=== PATIENT | female | born 1945 | race Caucasian/White ===

== ENCOUNTER 2019-12-25 11:52 | Outpatient (CLI) | payer MEDICARE, OTHER, SELFPAY ==
--- NOTE | 2019-12-25 12:00 | MM_ITS ---
WS: [id number] BILATERAL SCREENING DIGITAL MAMMOGRAM WITH CAD HISTORY: SCREENING COMPARISON: 10/18/2018 and 10/05/2017 and 08/22/2016 Bilateral CC and MLO views submitted. Computer aided detection analyzed. Breast composition: The breasts are heterogeneously dense, which may obscure small masses. No suspici ous masses, microcalcifications or architectural distortion. Small stable calcifications in the LEFT breast. MM/[place] [id number] IMPRESSION: BI-RADS: 2-Benign FOLLOW UP: 1 Year Follow-up
== END 2019-12-25 11:53 | disposition home or self-care (01) ==
LOC: RADSHAW 11:58
PROVIDERS: PCP Electrodiagnostic Medicine; Visit Provider Electrodiagnostic Medicine
DX: Z12.31 Encounter for screening mammogram for malignant neoplasm of breast (principal)
CPT/HCPCS: 77067

== ENCOUNTER 2020-03-16 11:07 | Outpatient (CLI) | payer MEDICARE, OTHER, SELFPAY ==
--- NOTE | 2020-03-16 11:16 | XR_ITS ---
WS: [id number] FOOT LEFT TECHNIQUE: 3 views of the left foot CLINICAL INFORMATION: LEFT FOOT PAIN, GOUT COMPARISON: None. FINDINGS: Osteopenia. Plantar calcaneal spurring. Achilles enthesophyte. Mild degenerative arthritis. No acute fractures. XR/XR foot LT min 3V* [id number] IMPRESSION: No acute left foot findings.
== END 2020-03-16 11:08 | disposition home or self-care (01) ==
LOC: RADWPI 11:11
PROVIDERS: PCP Electrodiagnostic Medicine; Visit Provider Electrodiagnostic Medicine
DX: M79.672 Pain in left foot (principal); M10.9 Gout, unspecified
CPT/HCPCS: 73630

== ENCOUNTER 2021-02-11 08:13 | Outpatient (CLI) | payer MEDICARE, OTHER, SELFPAY ==
--- NOTE | 2021-02-11 08:28 | MM_ITS ---
WS: [id number] Bilateral screening digital mammogram, 02/11/2021 Clinical Data: SCREENING Comparison: 12/25/2019, 10/18/2018, 10/05/2017, 07/05/2017, 08/22/2016, 11/24/2014, 11/08/2013, 11/01/2012, 10/05, 09/10/2010, 09/01/2008, 10/25/2006, 10/13/2005. Findings: The breast parenchymal pattern shows heterogeneous density No spiculated masses or clustered calcific ations are seen. There are no secondary signs of carcinoma. There are mole markers on both breasts. MM/[place] [id number] Impression: 1. Negative bilateral mammogram unchanged. 2. Recommend annual screening mammograms. BIRADS: 1-Negative FOLLOW UP: 1 Year Follow-up The CAD brick paving checker was used.
== END 2021-02-11 08:14 | disposition home or self-care (01) ==
LOC: RADSHAW 08:26
PROVIDERS: PCP Electrodiagnostic Medicine; Visit Provider Electrodiagnostic Medicine
DX: Z12.31 Encounter for screening mammogram for malignant neoplasm of breast (principal)
CPT/HCPCS: 77067

== ENCOUNTER 2021-04-19 08:02 | Outpatient (CLI) | payer MEDICARE, OTHER, SELFPAY ==
--- NOTE | 2021-04-19 08:21 | USCV_ITS ---
Christiane Lloyd Age: 75 Gender: F : 1945 Exam Date: 04/19/2021 08:49 Ordering Phys: González Keane DO Technologist: Myke Jama Exam Location: [facility] [place] Indication: HX OF CVA Risk Factors: None Previous Vascular Surgery: Right Brachial BP: / Left Brachial BP: / Right Left Velocity (cm/s) Spectral Plaque Velocity (cm/s) Spectral Plaque Syst/Diast Broadening Syst/Diast Broadening 77.60/ 19.70 Prox CCA 67.30 / 12.10 85.40/ 13.10 Mid CCA 71.70 / 18.70 73.60/ 15.80 Distal CCA 71.70 / 14.30 55.50/ 14.50 Hetro Prox ICA 113.10/ 19.70 65.80/ 17.90 Mid ICA 126.20/ 25.00 97.40/ 26.80 Distal ICA 131.50/ 26.30 120.90 ECA 153.80 1.14 ICA/CCA 1.83 Antegrade Vertebral Antegrade 58.10/ 10.80 cm/s 68.40/ 17.10 cm/s [place] Subclavian Tri 86.10 134.1 0 FINDINGS Comparison: none available. No significant elevation of systolic or diastolic velocities. Diffuse, mild bilateral scattered calcified plaque and intimal thickening throughout the common carotid arteries and extending through the bifurcation. Antegrade vertebral arteries. CONCLUSIONS Bilateral ICA stenosis less than 50%. Mild diffuse atherosclerosis. Dr. Sharee Méndez DO (Electronically Signed) Final Date: 19 April 2021 11:39 S
== END 2021-04-19 08:03 | disposition home or self-care (01) ==
LOC: RAD 08:15
PROVIDERS: PCP Electrodiagnostic Medicine; Visit Provider Electrodiagnostic Medicine
DX: I65.23 Occlusion and stenosis of bilateral carotid arteries (principal)
CPT/HCPCS: 93880

== ENCOUNTER → 2021-10-19 15:29 | Outpatient (BNVA) | payer MEDICARE, OTHER, SELFPAY | PROVIDERS: PCP Electrodiagnostic Medicine; Visit Provider Internal Medicine Cardiovascular Disease | DX: I10 Essential (primary) hypertension (principal); E78.5 Hyperlipidemia, unspecified; R42 Dizziness and giddiness; Z98.890 Other specified postprocedural states; I49.8 Other specified cardiac arrhythmias; I45.2 Bifascicular block | CPT/HCPCS: 93005; 99214 ==

== ENCOUNTER 2021-11-18 14:04 | Outpatient (CLI) | payer MEDICARE, OTHER, SELFPAY ==
--- NOTE | 2021-11-18 14:14 | MR_ITS ---
WS: [id number] MRI BRAIN WITH AND WITHOUT CONTRAST HISTORY: MEMORY LOSS COMPARISON: None available. TECHNIQUE: Multiplanar imaging performed through the brain with MultiHance 17 ml's IV. No acute infarcts are seen. Castro-white matter differentiation is well preserved. Moderate atrophy with T2 hyperintensities throughout the white matter from small vessel ischemic dise ase. No prior area of abnormal enhancement. No hemosiderin depositions. No susceptibility artifacts or prior lacunar infarcts. Ventricles and extra-axial spaces are prominent on the basis of atrophy. Clivus and pituitary gland are normal. Focal 5.6 mm enhancing nodule along the base of the marianela just to the RIGHT of midline. This is not ev ident on the precontrast exam. There is very mild enhancement on the postcontrast examinations. No ad jacent hemosiderin. I suspect this is probably a venous angioma. Single enhancing nodule in the RIGHT inferior marianela. Otherwise no enhancing masses are identified. Dural venous sinuses are normal. Paranasal sinuses: Well aerated with no significant disease. Mastoid air cells: Normal. Calvarium and scalp: Normal. MR/MR head wo/w con [id number] IMPRESSION: 1. No acute infarct, hemorrhage or edema. 2. Blush-like area of enhancement in the RIGHT marianela measures 5.6 mm. Favor thi s is probably a small vascular malformation such as venous angioma. Metastatic lesion cannot be excluded. Recommend short-term follow-up. Recommend follow-up brain MRI with and without contrast in 6-8 weeks. 3. Moderate atrophy with small vessel ischemic disease. No large cerebral infa rcts.
[2021-11-18] MEDS: gadobenate dimeglumine 20 mL vial IV (15:24)
== END 2021-11-18 14:05 | disposition home or self-care (01) ==
PROVIDERS: PCP Electrodiagnostic Medicine; Visit Provider Electrodiagnostic Medicine
DX: R41.3 Other amnesia (principal); I67.82 Cerebral ischemia; G31.9 Degenerative disease of nervous system, unspecified
CPT/HCPCS: 70553

== ENCOUNTER → 2021-12-14 10:44 | Outpatient (BNVA) | payer MEDICARE, OTHER, SELFPAY | PROVIDERS: PCP Electrodiagnostic Medicine; Visit Provider Nurse Practitioner Family | DX: I10 Essential (primary) hypertension (principal) | CPT/HCPCS: 99213 ==

== ENCOUNTER 2022-01-28 12:27 | Outpatient (CLI) | payer MEDICARE, OTHER, SELFPAY ==
--- NOTE | 2022-01-28 12:45 | USCV_ITS ---
Gabino Christiane Age: 76 Gender: F : 1945 Exam Date: 01/28/2022 12:52 Ordering Phys: Yashira Cotto MD ([email or web address]) Technologist: Exam Location: [facility] [place] Indication: hx of lt renal stent Aortic Velocity @ SMA (cm/s) 98.3 RIGHT KIDNEY LEFT KIDNEY Velocity (cm/s) Velocity (cm/s) Sys/Gardner Sys/Gardner Resistive Index Resistive Index 155.6 / 38.5 0.75 Proximal Renal Artery 119.2 / 31.2 0.74 165.3 / 41.7 0.75 Mid Renal Artery 149.3 / 39.7 0.73 194.1 / 40.1 0.79 Distal Renal Artery 116.0 / 22.7 0.80 184.5 / 32.1 0.83 Hilar 96.8 / 23.6 0.76 97.0 / 18.8 0.81 Upper Pole 49.7 / 14.0 0.72 88.6 / 20.9 0.76 Mid Pole 51.9 / 11.6 0.78 63.6 / 9.4 0.85 Lower Pole 55.3 / 14.1 0.75 2.00 Renal Aortic Ratio 1.52 Accleration Index (cm/sec2) 3112.0 Hilar 1355.0 0 0 2055.0 Upper Pole 1982.0 0 0 16734. Mid Pole 1173.0 00 0 1455.0 Lower Pole 914.00 0 105.0 Kidney Length (mm) 101.5 CONCLUSIONS Lt renal stent is patent and Left renal artery is patent Increased systolic flow velocities and post-stenotic turbulence noted in the mid and distal right renal artery, approaching 50- 60% renal artery stenosis, at the lower end of the range Slightly increased RI right kidney suggesting medical renal disease Riki Thrasher MD (Electronically Signed) Final Date: 31 January 2022 09:01 S
== END 2022-01-28 12:28 | disposition home or self-care (01) ==
LOC: RAD 12:28
PROVIDERS: PCP Electrodiagnostic Medicine; Visit Provider Internal Medicine Cardiovascular Disease
DX: Z98.890 Other specified postprocedural states (principal); I10 Essential (primary) hypertension
CPT/HCPCS: 93975

== ENCOUNTER → 2022-02-03 14:14 | Outpatient (BNVA) | payer MEDICARE, OTHER, SELFPAY | PROVIDERS: PCP Electrodiagnostic Medicine; Visit Provider Internal Medicine Cardiovascular Disease | DX: I10 Essential (primary) hypertension (principal); Z98.890 Other specified postprocedural states; R42 Dizziness and giddiness; E78.5 Hyperlipidemia, unspecified | CPT/HCPCS: 99214 ==

== ENCOUNTER → 2022-08-18 11:32 | Outpatient (BNVA) | payer MEDICARE, OTHER, SELFPAY | PROVIDERS: PCP Electrodiagnostic Medicine; Visit Provider Specialist | DX: E78.5 Hyperlipidemia, unspecified (principal); Z98.890 Other specified postprocedural states | CPT/HCPCS: 99214 ==

== ENCOUNTER 2022-09-27 16:41 | Emergency (ER) | payer MEDICARE, OTHER, SELFPAY ==
[2022-09-27] VITALS (25 sets, daily range): BP systolic 106–199; BP diastolic 55–87; PULSE 51–70; RESP 14–18; TEMP 36.7; O2SAT 98–100; BMI 27.4
--- NOTE | 2022-09-27 16:49 | XRR_ITS ---
PROCEDURE INFORMATION: Exam: XR Chest Exam date and time: 09/27/2022 5:14 PM Age: 77 years old Clinical indication: Pain; Chest pressure; Additional info: Chest pain TECHNIQUE: Imaging protocol: Radiologic exam of the chest. Views: 1 view. COMPARISON: CR XR KUB [id number] 09/08/2021 8:35 AM FINDINGS: Lungs: Unremarkable. No consolidation. Pleural spaces: Unremarkable. No pleural effusion. No pneumothorax. Heart/Mediastinum: Unremarkable. No cardiomegaly. Bones/joints: Unremarkable. XR/XR chest 1V portable [id number] IMPRESSION: No acute findings.
--- NOTE | 2022-09-27 17:00 | ECG_ITS ---
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 Measurements Intervals [place] Rate: 72 P: 48 GA: 173 QRS: 37 QRSD: 106 T: 23 QT: 387 QTc: 426 Interpretive Statements SINUS RHYTHM INDETERMINATE AXIS INCOMPLETE RIGHT BUNDLE BRANCH BLOCK [90+ ms QRS DURATION, TERMINAL R IN V1/V2, 40+ ms S IN I/aVL/V4/V5/V6] No previous ECG available for comparison Electronically Signed On 09-27-2022 20:27:12 CDT by Yashira Cotto M.D. [id number]
[2022-09-27 17:39] LABS: Basophils % 0.7 %; Eosinophils # 0.2 10^3/uL (0.0-0.8); Eosinophils % 3.6 %; Hematocrit 42.1 % (37.0-47.0); Hemoglobin 13.6 g/dL (11.5-15.3); Lymphocytes # 2.1 10^3/uL (0.8-4.8); Lymphocytes % 35.6 %; Mean Corpuscular HGB Conc 32.3 g/dL (30.0-36.0); Mean Corpuscular Hemoglobin 28.9 pg (28.0-34.0); Mean Corpuscular Volume 89.4 fl (81-99); Mean Platelet Volume 9.4 fL (7.4-10.4); Monocytes # 0.5 10^3/uL (0.2-0.9); Monocytes % 9.3 %; Neutrophils # 2.92 10^3/uL (1.8-7.7); Neutrophils % 50.6 %; Nucleated Red Blood Cells % 0 %; Platelet Count 278 10^3/cmm (130-400); Red Blood Count 4.71 10^6/uL (4.1-5.3); Red Cell Distribution Width 13.5 % (12.1-15.1); White Blood Count 5.8 10^3/uL (4.0-10.0)
[2022-09-27 18:07] LABS: Alanine Aminotransferase 26 U/L (0-33); Albumin Level 4.2 g/dL (3.5-5.2); Alkaline Phosphatase 78 U/L (35-105); Aspartate Amino Transferase 26 U/L (0-32); Blood Urea Nitrogen 15 mg/dL (8-23); Calcium 9.7 mg/dL (8.5-10.5); Carbon Dioxide 25 mmol/L (22-29); Chloride 102 mmol/L (98-107); Glucose 102 mg/dL (65-115); Osmolality Calculated 287 mOsm/kg (285-295); Sodium 138 mmol/L (136-145); Total Bilirubin 0.3 mg/dL (0.15-1.2); Total Protein 7.2 g/dL (6.6-8.7)
[2022-09-27 18:24] LABS: Troponin(5th) Baseline 6 ng/L (0-10)
--- NOTE | 2022-09-27 18:49 | ECG_ITS ---
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 Measurements Intervals [place] Rate: 62 P: 34 CT: 195 QRS: 37 QRSD: 109 T: 28 QT: 417 QTc: 426 Interpretive Statements SINUS RHYTHM WITH SINUS ARRHYTHMIA INCOMPLETE RIGHT BUNDLE BRANCH BLOCK [90+ ms QRS DURATION, TERMINAL R IN V1/V2, 40+ ms S IN I/aVL/V4/V5/V6] Compared to ECG 09/27/2022 17:00:20 Indeterminate axis no longer present Electronically Signed On 09-27-2022 20:31:31 CDT by Yashira Cotto M.D. [id number]
--- NOTE | 2022-09-27 19:30 | ED_ITS ---
HPI - Chest Pain General: Chief Complaint: Chest Pain Stated Complaint: Chest Pain/SOB Time Seen by Provider: 09/27/22 19:06 History of Present Illness: 77-year-old female presents emergency department chief complaint of having intermittent episodes of midsternal chest pain with no radiation last for couple seconds. Spontaneous rest unrelated to activity or exertion or breathing or movement. Patient reports she has been seen by motion picture camera lens technician before which she has had a stress echocardiogram before patient also reports having intermittent tremors that have been ongoing for 3 to 4 years in which she has had prior imaging is come back unremarkable the patient presents with her family present for further assessment and management which she been having these intermittent episodes patient reports no recent medication changes due to her high blood pressure which they have been following quite closely. Patient does not endorse having any palpitations with her chest pressure. She reports no other associated symptoms. Associated symptoms: Deny abdominal pain, dyspnea, fever(s), nausea, palpitations or vomiting Review of Systems General: Reports: 10 or more systems reviewed and unremarkable except in HPI and below Const: Denies: fever(s), chills, fatigue or malaise Eyes: Denies: change in vision or blurry vision Card: Reports: chest pain; Denies: palpitations Resp: Denies: dyspnea or productive cough GI: Denies: abdominal pain, nausea or vomiting : Denies: flank pain Musc: Denies: extremity pain or extremity swelling Skin/Breast: Denies: rash or pruritus Neuro: Denies: headache(s) Psych: Denies: anxiety or depression Gerry/Lymph: Denies: easy bleeding All/Imm: Denies: urticaria, throat swelling or facial swelling PFS ED PFSH: Medical History Anxiety Cystocele Dizziness History of stent insertion of renal artery Hyperlipidemia Malignant hypertension Renal artery stenosis Syncope Venous reflux Surgical History History of hysterectomy Hx of cholecystectomy Family History Grandfather CAD (coronary artery disease) Father CHF (congestive heart failure) CAD (coronary artery disease) Dementia Son Cancer Family/Other Cancer Diabetes Mother CAD (coronary artery disease) Dementia Other Hypertension Denies family history of Clotting disorder Chronic kidney disease (CKD) Suicide Anesthesia complication Bleeding disorder Lung disease Stroke Social History Smoking and tobacco status: never smoked Alcohol intake: never Substance/Drug Use: never Physical Exam Const: COMMON NORMALS: no acute distress, patient oriented x3 and healthy appearing HENMT: COMMON NORMALS: normocephalic and atraumatic HEAD & SCALP: norm ocephalic and atraumatic Eye: COMMON NORMALS: Equal, round and reactive pupils present and EOMs intact bilaterally PUPIL: Yes Equal, round and reactive pupils present Neck/C-Spine: COMMON NORMALS: full ROM, supple and no JVD Lymph: LYMPHATIC: no lymphadenopathy noted Chest: COMMONS NORMALS: normal inspection of the chest and normal palpation of entire chest wall Resp: COMMON NORMALS: normal respiratory effort, No retractions and clear to auscultation bilaterally EFFORT & INSPECTION: Yes able to speak in complete sentences and Yes symmetric chest movement AUSCULTATION: clear to auscultation bilaterally Cardio: COMMON NORMALS: no JVD, regular rate and regular rhythm RATE: regular rate RHYTHM: regular rhythm GI: COMMON NORMALS: Normal to inspection, nondistended, normoactive bowel sounds present, Soft to palpation and non-tender INSPECTION: Yes normal to inspection PALPATION: Yes Soft to palpation : COMMON NORMALS: Yes no CVA tenderness BLADDER/KIDNEY EXAM: Yes no CVA tenderness Back/Pelvis: COMMON NORMALS: no CVA tenderness Extremity: COMMON NORMALS: normal to inspection and full ROM Neuro: COMMON NORMALS: patient oriented x3, CN's II-XII intact bilaterally, moves all extremities and no focal motor deficits Psych: COMMON NORMALS: mental status grossly normal, Normal thought process present, cooperative and normal affect THOUGHT PROCESS: Normal thought process present Skin: COMMON NORMALS: no rashes or lesions noted GENERAL SKIN EXAM: no rashes or lesions noted Course Vital Signs: Vital signs: Vital Signs Temperature 98.1 F 09/27/22 17:02 Pulse Rate 51 L 09/27/22 21:15 Respiratory Rate 18 09/27/22 19:41 Blood Pressure 129/63 09/27/22 21:15 Pulse Oximetry 100 09/27/22 21:15 Oxygen Delivery Me thod Room Air 09/27/22 21:15 MDM - Chest Pain Medical Decision Making Due to the patient's symptoms and condition basic lab work imaging will be obtained and cardiac work-up will be obtained we will continue to follow cardiac enzymes 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 Patient advised to further follow-up with her motion picture camera lens technician next couple days for further assessment managemen for evaluation of possibly a stress echocardiogram if indicated which patient was advised to return the interim if any of his symptoms persist or worsen patient was advised to take a full dose aspirin daily until otherwise noted. Patient and family understand discharge instructions prior to discharge home .All questions were fully answered prior to subsequent discharge home. Lab Data 09/27/22 17:26 09/27/22 17:26 Radiology Impressions Chest X-Ray 09/27/22 16:49 IMPRESSION: No acute findings. Head CT 09/27/22 19:34 IMPRESSION: No acute intracranial abnormality. Laboratory Results WBC 5.8 10^3/uL (4.0-10.0) 09/27/22 17: RBC 4.71 10^6/uL (4.1-5.3) 09/27/22 17:26 Hgb 13.6 g/dL (11.5-15.3) 09/27/22 17:26 Hct 42.1 % (37.0-47.0) 09/27/22 17: MCV 89.4 fl (81-99) 09/27/22 17:26 MCH 28.9 pg (28.0-34.0) 09/27/22 17: MCHC 32.3 g/dL (30.0-36.0) 09/27/22 17: RDW 13.5 % (12.1-15.1) 09/27/22 17:26 Plt Count 278 10^3/cmm (130-400) 09/27/22 17: MPV 9.4 fL (7.4-10.4) 09/27/22 17:26 Neut % (Auto) 50.6 % 09/27/22 17:26 Lymph % (Auto) 35.6 % 09/27/22 17:26 [place] % (Auto) 9.3 % 09/27/22 17: Eos % (Auto) 3.6 % 09/27/22 17:26 Baso % (Auto) 0.7 % 09/27/22 17:26 Neut # (Auto) 2.92 10^3/uL (1.8-7.7) 09/27/22 17:26 Lymph # (Auto) 2.1 10^3/uL (0.8-4.8) 09/27/22 17:26 [place] # (Auto) 0.5 10^3/uL (0.2-0.9) 09/27/22 17:26 Eos # (Auto) 0.2 10^3/uL (0.0-0.8) 09/27/22 17:26 Baso # (Auto) 0.0 10^3/uL (0.0-0.1) 09/27/22 17: Nucleated RBC % (auto) 0 % 09/27/22 17: Nucleated RBCs # 0.0 /100WBC 09/27/22 17:26 Sodium 138 mmol/L (136-145) 09/27/22 17:26 Potassium 4.0 mmol/L (3.5-5.1) 09/27/22 17:26 Chloride 102 mmol/L (98-107) 09/27/22 17:26 Carbon Dioxide 25 mmol/L (22-29) 09/27/22 17:26 Anion Gap 15.0 (5-19) 09/27/22 17:26 BUN 15 mg/dL (8-23) 09/27/22 17:26 Creatinine 0.7 mg/dL (0.5-0.9) 09/27/22 17:26 GFR Calculation Not Reportable 09/27/22 17:26 Glucose 102 mg/dL (65-115) 09/27/22 17:26 Calculated Osmolality 287 mOsm/kg (285-295) 09/27/22 17:26 Calcium 9.7 mg/dL (8.5-10.5) 09/27/22 17:26 Total Bilirubin 0.3 mg/dL (0.15-1.2) 09/27/22 17:26 AST 26 U/L (0-32) 09/27/22 17:26 ALT 26 U/L (0-33) 09/27/22 17:26 Alkaline Phosphatase 78 U/L (35-105) 09/27/22 17:26 Troponin T Baseline 6 ng/L (0-10) 09/27/22 17:26 Troponin T 120 Minute 6.89 ng/L (0-10) 09/27/22 19:29 Delta Troponin T 0.89 ABS# (0-10) 09/27/22 19:29 NT-Pro-B Natriuret Pep 59 pg/mL (0-450) 09/27/22 19:29 Total Protein 7.2 g/dL (6.6-8.7) 09/27/22 17:26 Albumin 4.2 g/dL (3.5-5.2) 09/27/22 17:26 Globulin 3.0 g/dL (1.3-4.6) 09/27/22 17:26 Lipase 31 U/L (13-60) 09/27/22 19:29 Urine Color Light yellow (Yellow) 09/27/22 20:44 Urine Appearance Clear (CLEAR) 09/27/22 20:44 Urine pH 8 (5-7) H 09/27/22 20:44 Ur Specific [place] 1.010 (1.005-1.030) 09/27/22 20:44 Urine Protein Neg (Negative) 09/27/22 20:44 Urine Glucose (UA) Norm (Normal) 09/27/22 20:44 Urine Ketones Negative (Negative) 09/27/22 20:44 Urine Blood Neg (Negative) 09/27/22 20:44 Urine Nitrate Negative (Negative) 09/27/22 20:44 Urine Bilirubin Neg (Negative) 09/27/22 20:44 Prot Sulfosalicylic Acd Negative (Negative) 09/27/22 20:44 Urine Urobilinogen Neg mg/dL (Negative) 09/27/22 20:44 Ur Leukocyte Esterase Trace (Negative) H 09/27/22 20:44 Urine RBC None /hpf (0-2) 09/27/22 20:44 Urine WBC 0-4 /hpf (0-5) H 09/27/22 20:44 Ur Squamous Epith Cells 0-4 /hpf (0-5) H 09/27/22 20:44 Amorphous Sediment Not Reportable 09/27/22 20:44 Urine Bacteria None /hpf (NONE) 09/27/22 20:44 Discharge Plan Discharge Patient Disposition: Home Clinical Impression: Intermittent chest pain Condition: Stable Prescriptions: No Action clopidogrel 75 mg tablet 75 mg PO DAILY aspirin [Adult Low Dose Aspirin] 81 mg tablet,delayed release (DR/EC) 81 mg PO DAILY lovastatin 40 mg tablet 40 mg PO DAILY calcium carbonate [Calcium 500] 500 mg calcium (1,250 mg) tablet 500 mg PO TID magnesium oxide 500 mg tablet 500 mg PO DAILY omega-3 fatty acids [Fish Oil Concentrate] 1,000 mg capsule 1,000 mg PO DAILY carvedilol 6.25 mg tablet 3.125 mg PO BID cholecalciferol (vitamin D3) 25 mcg (1,000 unit) capsule 25 mcg PO DAILY sennosides-docusate sodium [Senexon-S] 8.6-50 mg tablet 1 tab-cap PO DAILY magnesium hydroxide [Milk of Magnesia] 400 mg/5 mL suspension 15 ml PO DAILY PRN amlodipine 5 mg tablet 10 mg PO DAILY Qty: 180 3RF Discharge Orders: Discharge ED (Routine); Ordered 09/27/22 Ordered By: Khai Otero Referrals: Yashira Cotto MD [Physician] - 1-3 days (Or your motion picture camera lens technician for further assessment management for our evaluation for stress echocardiogram) González Keane DO [Primary Care Provider] - 1-3 days Patient Instructions: Chest Pain (ED) Activity Restrictions/Additional Instructions: Your lab work and imaging in the emergency department is come back unremarkable. It is advised we will need to further follow-up with your motion picture camera lens technician in the upcoming days for further evaluation of underlying cardiac condition such as a stress echocardiogram. Please continue to take your medications as previously prescribed at this time T please take a full dose aspirin daily please return in the interim if any of your symptoms persist or worse. Coding Level of Care Code ED Testing Lead for Maricarmen Hutchinson
--- NOTE | 2022-09-27 19:34 | CTR_ITS ---
PROCEDURE INFORMATION: Exam: CT Head Without Contrast Exam date and time: 09/27/2022 8:04 PM Age: 77 years old Clinical indication: Other: Muscle tremors; Additional info: Persistent intermittent muscle tremors TECHNIQUE: Imaging protocol: Computed tomography of the head without contrast. Radiation optimization: All CT scans at this facility use at least one of these dose optimization techniques: automated exposure control; mA and/or kV adjustment per patient size (includes targeted exams where dose is matched to clinical indication); or iterative reconstruction. REPORTING DATA: Count of CT and Cardiac NM exams in prior 12 months: This patient has received 0 known CTs and 0 known cardiac nuclear medicine studies in the 12 months prior to the current study. COMPARISON: MR head wo/w con [id number] 11/18/2021 2:51 PM RADIATION DOSE METRICS: Total DLP (mGy-cm): 1049.7 FINDINGS: Brain: No hemorrhage. No edema. Moderate diffuse cerebral atrophy and mild sequela of chronic small vessel ischemic disease. No mass effect. Cerebral ventricles: No ventriculomegaly. Paranasal sinuses: Visualized sinuses are unremarkable. No fluid levels. Mastoid air cells: Visualized mastoid air cells are well aerated. Bones/joints: Unremarkable. No acute fracture. Soft tissues: Unremarkable. CT/CT head wo con* [id number] IMPRESSION: No acute intracranial abnormality.
[2022-09-27] MEDS: sodium chloride 0.9% 500 ML 999 ML IV (19:36)
[2022-09-27] MEDS: ondansetron 2 mg/ML SDV 2 mL 4 MG IVP (19:37)
[2022-09-27] MEDS: aspirin 81 mg Chew Tablet 324 MG PO (19:37)
[2022-09-27] MEDS: morphine 4 mg/mL SDV 1 mL IVP (19:41)
[2022-09-27 20:23] LABS: Troponin 5 2HR 6.89 ng/L (0-10)
[2022-09-27 20:28] LABS: Troponin 5 2HR Delta 0.89 ABS# (0-10)
[2022-09-27 20:30] LABS: Lipase 31 U/L (13-60); NT Pro B Type Natriuretic Pept 59 pg/mL (0-450)
[2022-09-27] MEDS: nitroglycerin 0.4 mg sublingual Tablet SUBLINGUAL ×2 (20:31→20:49)
--- NOTE | 2022-09-27 20:46 | PC.NURSE ---
MD notified of pt chest pain 05/06 after first nitro, MD said to administer second dose. Pt BP 134/63 at this time.
[2022-09-27 21:05] LABS: Bilirubin Urine Neg (Negative); Blood Urine Neg (Negative); Glucose Urine UA Norm (Normal); Ketones Urine Negative (Negative); Nitrate Urine Negative (Negative); Protein Urine Neg (Negative); Sulfosalicylic Acid Urine Negative (Negative); Urine Appearance Clear (CLEAR); Urine Color Light yellow (Yellow); Urobilinogen Urine Neg (Negative); pH Urine 8 (5-7)
[2022-09-27 21:06] LABS: Add Urine Culture? No; Add Urine Microscopic? YES; Leukocyte Esterase Urine Trace (Negative); Squamous Epithelial Cell Urine 0-4 /hpf (0-5); WBC Urine 0-4 /hpf (0-5)
== END 2022-09-27 23:05 | disposition home or self-care (01) ==
PROVIDERS: Physician Assistant; Emergency Provider Emergency Medicine; PCP Electrodiagnostic Medicine
DX: R07.89 Other chest pain (principal); Z79.82 Long term (current) use of aspirin; Z79.02 Long term (current) use of antithrombotics/antiplatelets; E78.5 Hyperlipidemia, unspecified; I10 Essential (primary) hypertension
CPT/HCPCS: 36415; 70450; 71045; 80053; 81001; 83690; 83880; 84484; 85025; 93005; 96361; 96374; 96375; 99285; J2270; J2405; J7040

== ENCOUNTER → 2022-09-30 10:40 | Outpatient (BNVA) | payer MEDICARE, OTHER, SELFPAY | PROVIDERS: PCP Electrodiagnostic Medicine; Visit Provider Nurse Practitioner Family | DX: R07.89 Other chest pain (principal); R42 Dizziness and giddiness; I10 Essential (primary) hypertension | CPT/HCPCS: 99214 ==

== ENCOUNTER 2022-10-04 09:47 | Outpatient (CLI) | payer MEDICARE, OTHER, SELFPAY ==
--- NOTE | 2022-10-04 10:00 | USCV_ITS ---
Christiane Lloyd Age: 77 Gender: F : 1945 Exam Date: 10/04/2022 10:09 Ordering Phys: Sabina Contreras Technologist: Ant Waller [place]am [place] [facility] [place] Ind[place]: worsening angina BP: 144 / 84 HR: 56 Rhythm: Sinus Technical Quality: Suboptimal MEASUREMENTS (Male / Female) Normal Values 2D ECHO LVOT Diameter 2.0 cm LV Ejection Fraction MOD 2C 76.7 % LV Ejection Fraction 2C AL 77.0 % LA Diameter 3.2 cm LA Width 4.0 cm LA Height 4.0 cm RA Width 3.9 cm RA Height 4.6 cm Aorta at Sinotubular Diameter 2.5 cm IVC Diameter 1.7 cm M-MODE Aortic Annulus Diameter 2.6 cm LA Ao Ratio MM 1.3 MV E Point Septal Separation 0.4 cm DOPPLER AV Peak Velocity 138.7 cm/s LVOT Peak Velocity 109.0 cm/s AV Area Cont Eq vti 2.3 cm squared AV Area Cont Eq pk 2.5 cm squared MV Peak Velocity 142.0 cm/s MV Area PHT 4.6 cm squared Mitral E to A Ratio 1.3 MV E' Velocity 50.5 cm/s Mitral E to MV E' Ratio 7.6 Mitral E to LV E' Lateral Ratio 10.7 Mitral E to LV E' Septal Ratio 5.9 TR Peak Velocity 294.8 cm/s TR Peak Gradient 34.8 mmHg TR Mean Velocity 206.8 cm/s TR Mean Gradient 19.4 mmHg TR Velocity Time Integral 87.1 cm Right Atrial Pressure 3.0 mmHg Pulmonary Artery Systolic Pressu 37.8 mmHg PV Peak Velocity 99.0 cm/s RV Acceleration Time 0.1 s RV Ejection Time 0.3 s RV AcT/ET 0.5 FINDINGS Left Ventricle Normal left ventricular size, systolic function and wall thickness, with no regional wall motion abnormalities. Grade I/IV diastolic dysfunction (abnormal relaxation filling pattern), normal to mildly elevated filling pressures. Left ventricular ejection fraction is estimated at 60 %. Right Ventricle Normal right ventricular size and systolic function. Mild pulmonary hypertension, RVSP 37.8 mmHg. Right Atrium The right atrium is normal in size. Left Atrium The left atrium is normal in size. Mitral Valve Structurally normal mitral valve. Mild mitral valve regurgitation. Aortic Valve Structurally normal trileaflet aortic valve. Trace aortic valve regurgitation. Tricuspid Valve Structurally normal tricuspid valve. Mild tricuspid valve regurgitation. Pulmonic Valve Pulmonic valve not well visualized. Pericardium Normal pericardium without effusion. Aorta Normal ascending aorta dimension. IVC The inferior vena cava appears normal. CONCLUSIONS Normal left ventricular size, systolic function and wall thickness, with no regional wall motion abnormalities. Grade I/IV diastolic dysfunction (abnormal relaxation filling pattern), normal to mildly elevated filling pressures. Left ventricular ejection fraction is estimated at 60 %. Normal right ventricular size and systolic function. Mild pulmonary hypertension, RVSP 37.8 mmHg. Structurally normal mitral valve. Mild mitral valve regurgitation. Structurally normal trileaflet aortic valve. Trace aortic valve regurgitation. No significant change since the prior echocardiogram study of 03/05/2018 Dr. Parmjit Gonsalves MD (Electronically Signed) Final Date: 04 October 2022 16:53 S
== END 2022-10-04 09:48 | disposition home or self-care (01) ==
PROVIDERS: PCP Electrodiagnostic Medicine; Visit Provider Nurse Practitioner Family
DX: I10 Essential (primary) hypertension (principal); R07.9 Chest pain, unspecified; R42 Dizziness and giddiness; I08.0 Rheumatic disorders of both mitral and aortic valves
CPT/HCPCS: 93306

== ENCOUNTER 2022-10-20 07:17 | Outpatient (CLI) | payer MEDICARE, OTHER, SELFPAY ==
[2022-10-20 07:56] VITALS: BMI 27.2
--- NOTE | 2022-10-20 08:23 | NMCV_ITS ---
NM nina perf SPECT r/s* [id number] Christiane Lloyd Age: 77 Gender: F : 1945 Exam Date: 10/20/2022 08:31 Ordering Phys: Sabina Contreras Technologist: KATY Arana Exam Location: [facility] Indications: CHEST PAIN, HYPERTENSION STRESS TEST Please see separate stress test report in [facility] for full findings IMAGE PROTOCOL Rest/Stress 1 Lexiscan Day Radiopharmaceutical Dose (mCi) Administration Site Administered by Rest: Tc-99m 10.4 IV KATY Moya Sestamibi Stress:Tc-99m 32.4 IV KATY Moya Sestamibi Rest: 20-Oct-2022 60 Discovery 630 Stress: 20-Oct-2022 30 Discovery 630 0.4mg Lexiscan. Images obtained in supine and prone position. SPECT RESULTS Technical Quality: Excellent Raw Data Analysis: Normal Image Corrections: No attenuation or motion correction applied Summed Stress Score: 0 Summed Rest Score: 0 Summed Difference Score: 0 PERFUSION FINDINGS Fairly uniform myocardial tracer uptake with no significant perfusion abnormalities FUNCTIONAL RESULTS (calculated via Gated SPECT) Stress Image LV EF (%): 84 Stress EDV (mL):73 TID: 1.11 Stress ESV (mL):12 FUNCTIONAL FINDINGS: Segmental wall motion analysis revealing no gross wall motion abnormalities IMPRESSIONS 1. Unremarkable Myocardial perfusion imaging 2. Normal LV ejection fraction of 84% 3. LV wall motion analysis revealing no gross wall motion abnormalities. 4. Normal LV volume Low probability for coronary ischemia, based on the above findings Dr Yashira Cotto MD FAC (Electronically Signed) Final Date: 20 October 2022 12:36 S
--- NOTE | 2022-10-20 08:23 | ECG_ITS ---
[facility] Test Date: 2022-10-20 Pat Name: Christiane Lloyd Department: Room: Gender: Female [employer] Inserter: Kristi Rainey : 1945 Requested By: Sabina Contreras Order Number: [id number] MD: Yashira Cotto M.D. Interpretive Statements NAME OF STUDY: LEXISCAN SESTAMIBI STRESS TEST INDICATION: Chest Pain, PROCEDURE: At the baseline, the EKG revealed sinus bradycardia with a rate of [address] Ts.. The baseline heart was 55 bpm with a blood pressue of 137/68 mm of Hg Lexiscan was infused over a period of 20 seconds. A total of 0.4 milligrams of Lexiscan was infused. The stress phase was continued for a total of 5 minutes. Heart rate at the end of the stress phase was 71 bpm with a blood pressure 96/53 mm of Hg. The EKG at the peak infusion revealed no significant changes. Sestamibi was injected 20 seconds after the Lexiscan infusion. Heart rate at the end of the recovery phase was 75 bpm with a blood pressure of 95/53 mm of Hg. CONCLUSION: 1. No significant EKG changes with the LexiScan infusion 2. No LexiScan induced chest pain or cardiac arrhythmia 3. Normal blood pressure and heart rate response 4. Sestamibi/sestamibi perfusion scan pending; see separate report. Electronically Signed On 10-26-2022 14:46:40 CDT by Yashira Cotto M.D. [email or web address]
[2022-10-20] MEDS: regadenoson 0.4 Mg/5 ml Syringe IVP (09:33)
[2022-10-20 09:40] VITALS: BP 95/53; PULSE 75
== END 2022-10-20 07:18 | disposition home or self-care (01) ==
LOC: CDL 07:21
PROVIDERS: PCP Electrodiagnostic Medicine; Visit Provider Nurse Practitioner Family
DX: I20.0 Unstable angina (principal); I10 Essential (primary) hypertension
CPT/HCPCS: 36415; 78452; 93017; 96374; A9500; J2785

== ENCOUNTER → 2023-04-24 10:21 | Outpatient (BNVA) | payer MEDICARE, OTHER, SELFPAY | PROVIDERS: PCP Electrodiagnostic Medicine; Visit Provider Nurse Practitioner Family | DX: I10 Essential (primary) hypertension (principal) | CPT/HCPCS: 99213 ==

== ENCOUNTER → 2023-10-09 09:42 | Outpatient (BNVA) | payer MEDICARE, OTHER, SELFPAY | PROVIDERS: PCP Electrodiagnostic Medicine; Visit Provider Internal Medicine Cardiovascular Disease | DX: R55 Syncope and collapse (principal); Z98.890 Other specified postprocedural states; I10 Essential (primary) hypertension | CPT/HCPCS: 99202 ==

== ENCOUNTER → 2024-04-08 08:49 | Outpatient (BNVA) | payer MEDICARE, OTHER, SELFPAY | PROVIDERS: PCP Electrodiagnostic Medicine; Visit Provider Nurse Practitioner Family | DX: I10 Essential (primary) hypertension (principal); E78.5 Hyperlipidemia, unspecified; Z98.890 Other specified postprocedural states | CPT/HCPCS: 99214 ==

== ENCOUNTER → 2024-10-21 10:54 | Outpatient (BNVA) | payer MEDICARE, OTHER, SELFPAY | PROVIDERS: PCP Electrodiagnostic Medicine; Visit Provider Internal Medicine Cardiovascular Disease | DX: I10 Essential (primary) hypertension (principal); Z98.890 Other specified postprocedural states; R42 Dizziness and giddiness; E78.2 Mixed hyperlipidemia | CPT/HCPCS: 99214 ==